=== PATIENT | male | born 1995 | race Caucasian/White ===

== ENCOUNTER 2018-05-11 15:01 | Emergency (ER) | payer MEDICAID ==
[2018-05-11 15:41] LABS: BASOPHILS 0.2 % (0-2); EOSINOPHILS 1.7 % (0-7); HEMOGLOBIN 13.9 g/dL (13.5-17.5); LYMPHOCYTES 33.2 % (15-50); MCHC 33.9 g/dL (31.0-37.0); MCV 91.3 fL (80.0-100.0); MEAN PLATELET VOLUME 10.6 fL (7.4-10.4); MONOCYTES 8.8 % (2-11); NEUTROPHILS 56.1 % (40-80); PLATELET COUNT 175 10x3/uL (130-400); RBC 4.49 10x6/uL (4.20-6.10); RDW 13.4 % (11.5-14.5); WBC 5.8 10x3/uL (4.8-10.8)
[2018-05-11 15:48] LABS: APPEARANCE CLEAR (CLEAR); COLOR YELLOW (YELLOW)
[2018-05-11 15:49] LABS: BILIRUBIN NEGATIVE (NEGATIVE); GLUCOSE NEGATIVE (NEGATIVE); KETONE NEGATIVE (NEGATIVE); NITRITE NEGATIVE (NEGATIVE); PROTEIN NEGATIVE (NEGATIVE); UROBILINOGEN NORMAL (NORMAL)
[2018-05-11 15:51] LABS: BACTERIA FEW /hpf (NONE SEEN); RED CELLS - URINE 0-5 /hpf (0-5); WHITE CELLS - URINE 0-5 /hpf (0-5)
[2018-05-11 15:57] LABS: ALBUMIN 3.9 g/dL (3.4-5.0); ALKALINE PHOSPHATASE 53 U/L (46-116); ALT (SGPT) 60 U/L (10-68); AMYLASE - SERUM 90 U/L (25-115); BILIRUBIN - TOTAL 0.67 mg/dL (0.2-1.3); CALC OSMOLALITY 277 mosm/kg (275-300); CARBON DIOXIDE 26.8 mmol/L (21.0-32.0); CHLORIDE - SERUM 103 mmol/L (98-107); CREATININE - SERUM 0.8 mg/dL (0.6-1.3); GLUCOSE 94 mg/dL (74-106); LIPASE 143 U/L (73-393); POTASSIUM - SERUM 4.1 mmol/L (3.5-5.1); PROTEIN - SERUM 8.1 g/dL (6.4-8.2); SODIUM 140 mmol/L (136-145); UREA NITROGEN 10 mg/dL (7-18); eGFR NON AFRICAN AMERICAN > 90 mL/min (90-120)
== END 2018-05-11 17:30 | disposition home or self-care (01) ==
LOC: D.ER 15:01
PROVIDERS: Family Medicine
DX: R10.32 Left lower quadrant pain (principal); R31.9 Hematuria, unspecified; F17.200 Nicotine dependence, unspecified, uncomplicated

== ENCOUNTER 2018-05-14 21:24 | Emergency (ER) | payer MEDICAID ==
[~2018-05-14] VITALS: Ht 170.2 cm; Wt 95.5 kg
[2018-05-14 21:35] VITALS: BP 138/89; Ht 170.2 cm; Wt 95.5 kg
[2018-05-14 22:02] LABS: COLOR YELLOW (YELLOW)
[2018-05-14 22:03] LABS: APPEARANCE CLEAR (CLEAR); BILIRUBIN NEGATIVE (NEGATIVE); GLUCOSE NEGATIVE (NEGATIVE); KETONE NEGATIVE (NEGATIVE); NITRITE NEGATIVE (NEGATIVE); PROTEIN TRACE mg/dL (NEGATIVE); UROBILINOGEN NORMAL (NORMAL)
[2018-05-14 22:04] LABS: BACTERIA MANY /hpf (NONE SEEN); RED CELLS - URINE 0-5 /hpf (0-5); WHITE CELLS - URINE 0-5 /hpf (0-5)
== END 2018-05-15 00:30 | disposition home or self-care (01) ==
LOC: D.ER 21:24
PROVIDERS: Family Medicine
DX: A64 Unspecified sexually transmitted disease (principal); F17.200 Nicotine dependence, unspecified, uncomplicated

== ENCOUNTER 2019-03-22 13:49 | Emergency (ER) | payer OTHER ==
[~2019-03-22] VITALS: Ht 170.2 cm; Wt 89.5 kg
[2019-03-22 13:55] VITALS: Ht 170.2 cm; Wt 89.5 kg
[2019-03-22] MEDS ORDERED: MUCINEX DM ER1 EAC1 PO (14:47)
[2019-03-22 14:55] VITALS: BP 115/64
== END 2019-03-22 14:56 | disposition home or self-care (01) ==
LOC: D.ER 13:49
DX: J00 Acute nasopharyngitis [common cold] (principal)

== ENCOUNTER 2019-04-29 19:42 | Emergency (ER) | payer OTHER ==
[~2019-04-29] VITALS: Ht 170.2 cm; Wt 77.3 kg
[~2019-04-29 19:42] MED LIST: MUCINEX DM ER1 EAC1 PO
[2019-04-29 19:53] VITALS: BP 110/69; Ht 170.2 cm; Wt 77.3 kg
[2019-04-29] MEDS ORDERED: ANXIETY MEDS (20:03)
[2019-04-29] MEDS ORDERED: INHALER (20:03)
[2019-04-29] MEDS ORDERED: ZYRTEC10 MG PO (20:58)
[2019-04-29] MEDS ORDERED: FLUTICASONE PRO16 GM NASAL (20:58)
== END 2019-04-29 21:20 | disposition home or self-care (01) ==
LOC: D.ER 19:42
DX: J30.2 Other seasonal allergic rhinitis (principal)